=== PATIENT | male | born 1995 | race Caucasian/White ===

== ENCOUNTER 2022-12-24 22:06 | Emergency (ER) | payer SELFPAY ==
[~2022-12-24] VITALS: Ht 180.3 cm; Wt 90.7 kg
--- NOTE | 2022-12-24 22:06 | NUR ---
Dr. Swann examining patient.
[2022-12-24 22:13] VITALS: BP 139/87
[2022-12-24] MEDS ORDERED: LORazepam 1 MG TAB PO ONE (22:15)
[2022-12-25] MEDS ORDERED: NALO4SPR NS (00:53)
[2022-12-25 01:02] VITALS: BP 139/87
--- NOTE | 2022-12-25 01:02 | NUR ---
Patient discharged with v/s stable. Written and verbal after care instructions given and explained. Patient verbalized understanding. Ambulatory with steady gait. All questions addressed prior to discharge. Advised to follow up with PMD.
== END 2022-12-25 01:02 | disposition home or self-care (01) ==
LOC: MED 22:06
DX: F41.9 Anxiety disorder, unspecified (principal); F15.10 Other stimulant abuse, uncomplicated; Z79.899 Other long term (current) drug therapy
CPT/HCPCS: 93005; 99283